=== PATIENT | male | born 1965 | race Two or more races ===

== ENCOUNTER 2017-11-17 06:15 | Day surgery (SDC) | payer BC ==
[2017-11-15 14:52] VITALS: BMI 24.8
[~2017-11-17 06:15] MED LIST: BUPIVACAINE HCL/PF 0.25% (2.5MG/ML) 10 ML VIAL IJ ONE
[2017-11-17] MEDS ORDERED: BUPIVACAINE HCL/EPINEPHRINE/PF 30 ML VIAL IJ ONE (07:06)
[2017-11-17] MEDS ORDERED: BUPIVACAINE HCL/PF 2.5 MG/ML - 30 ML VIAL IJ ONE (07:07)
[2017-11-17] MEDS ORDERED: EPINEPHrine 1:1,000 1 MG/1 ML - 30ML VIAL (INJECTION) ONE (07:12)
[2017-11-17] MEDS ORDERED: SUCCINYLCHOLINE CHLORIDE 200 MG/10 ML VIAL ONE (07:18)
[2017-11-17] MEDS ORDERED: PROPOFOL 20 ML ONE ×2 (07:18)
[2017-11-17] MEDS ORDERED: LIDOCAINE HCL 2% JELLY (5 ML/TUBE) ONE (07:19)
[2017-11-17] MEDS ORDERED: KETOROLAC TROMETHAMINE 30 MG/1 ML VIAL ONE (07:19)
[2017-11-17] MEDS ORDERED: ONDANSETRON 4 MG/2 ML VIAL ONE (07:19)
[2017-11-17] MEDS ORDERED: ceFAZolin SODIUM 1 GM VIAL ONE (07:19)
[2017-11-17] MEDS ORDERED: LIDOCAINE HCL/PF 2% SDV 5ML VIAL ONE (07:19)
[2017-11-17] MEDS ORDERED: DEXAMETHASONE SOD PHOSPHATE 4 MG/1 ML VIAL ONE (07:19)
[2017-11-17] MEDS ORDERED: BUPIVACAINE HCL/PF 0.25% (2.5MG/ML) 10 ML VIAL IJ ONE (08:45)
[2017-11-17] MEDS ORDERED: PROMETHAZINE HCL 25 MG/1 ML VIAL IVPUSH PRN (09:01)
[2017-11-17] MEDS ORDERED: oxyCODONE HCL 5 MG TABLET PO PRN ×2 (09:01)
[2017-11-17] MEDS ORDERED: ONDANSETRON 4 MG/2 ML VIAL IVPUSH PRN (09:01)
[2017-11-17 10:13] VITALS: TEMP 98.2
[2017-11-17 10:59] VITALS: BP 116/80; PULSE 78
--- NOTE | 2017-11-19 21:23 | OP ---
DATE OF OPERATION: 11/17/2017 LOCATION: [facility] SURGEON: Catrachito Marroquin MD DYE STAND LOADER: JODEE Garcia PREOPERATIVE DIAGNOSES: 1. Right knee medial and lateral meniscal tear. 2. Right knee cartilage injury. 3. Right knee synovitis. POSTOPERATIVE DIAGNOSES: 1. Right knee medial and lateral meniscal tear. 2. Right knee cartilage injury. 3. Right knee synovitis. PROCEDURE: 1. Right knee arthroscopy with partial meniscectomy, lateral meniscus. 2. Right knee arthroscopy with chondroplasty and abrasion-plasty. 3. Right knee arthroscopy with synovectomy, including removal of medial plica. FINDINGS: 1. Medial meniscus body and posterior horn tear, posterior one-third. 2. Lateral meniscus body and anterior horn tear, anterior one-third. 3. Synovitis, patellofemoral, medial and lateral notch area. 4. Anterior grade 2 to 3 cartilage injury, medial femoral condyle and tibial plateau. 5. ACL and PCL intact. 6. Diffuse grade 1 to 2 cartilage injury, lateral joint line. 7. Central grade 2 to 4 cartilage injury, patellofemoral trochlea and patellofemoral joint. PROCEDURE: Informed consent was obtained. The patient came to the operating room, where the lower extremity was prepped and draped in a sterile fashion. A tourniquet was placed on the upper thigh, but not inflated. Using standard arthroscopic technique, a lateral incision and portal was made to allow for introduction of the camera into the suprapatellar bursa. This was then taken to the medial joint line, where under direct visualization, a medial incision and portal was made. Excessive synovium noted in the medial, lateral and patellofemoral and notch area was removed by an upbiter, shaver and Bovie cautery. This was found to bring in inflammatory tissue into the joint surface, a source of pain and dysfunction. Probing of the medial and lateral meniscus found tears, as described in the findings. These were removed with the upbiter and shaver and taken back to a stable rim. Grade 2 to 3 degenerative changes were treated with a chondroplasty, removing all flaking surfaces with low-setting Bovie along the periphery to prevent further flaking. Grade 4 changes, as noted, were treated with an abrasoplasty, creating a bleeding surface at the bone/cartilage interface. Aggressive debridement with shaver/german created bleeding surface. Micro fracture also done when indicated in findings All areas of the knee were once again reexamined. The knee was then drained and a single suture was placed in all portals. A sterile dressing was placed and the patient was transferred to the recovery room without complication. CATRACHITO MARROQUIN M.D. [id number]
--- NOTE | 2017-11-21 15:01 | PATH ---
Surgical Pathology Report Patient Name: WILLIE MEJIAS Med. Rec. #: [id number] /Age/Gender: 1965 (Age: 52) / M Account: [id number] Location: [facility] AMBULATORY Taken: 11/17/2017 Received: 11/17/2017 Reported: 11/21/2017 Physicians: Catrachito Oneal M.D. Specimen(s) Received RIGHT KNEE SHAVINGS Clinical History Internal derangement right knee Final Diagnosis KNEE, RIGHT, ARTHROSCOPIC SHAVINGS: FIBROSYNOVIAL AND FIBROCARTILAGINOUS TISSUE. Electronically Signed Lindsey Mooney M.D. Gross Description Received in formalin, labeled "right knee shavings," is a 5.0 x 4.2 x 0.4 cm. aggregate of capone-yellow soft tissue fragments. A retail sales representative portion is submitted in one cassette. /11/20/2017 saudi11/20/2017
== END 2017-11-17 11:00 | disposition home or self-care (01) ==
LOC: FASU 06:15
PROVIDERS: ATTEND Orthopaedic Surgery
PROC: 0SBC4ZZ Excision of Right Knee Joint, Percutaneous Endoscopic Approach (ICD-10-PCS; 2017-11-17)
PROC: 0SBC4ZZ Excision of Right Knee Joint, Percutaneous Endoscopic Approach (ICD-10-PCS; 2017-11-17)
PROC: 0SBC4ZZ Excision of Right Knee Joint, Percutaneous Endoscopic Approach (ICD-10-PCS; principal; 2017-11-17 07:30)
DX: S83.241A Other tear of medial meniscus, current injury, right knee, initial encounter (principal); S83.281A Other tear of lateral meniscus, current injury, right knee, initial encounter; S83.8X1A Sprain of other specified parts of right knee, initial encounter; M65.861 Other synovitis and tenosynovitis, right lower leg; X58.XXXA Exposure to other specified factors, initial encounter; Y93.89 Activity, other specified; Y92.89 Other specified places as the place of occurrence of the external cause
CPT/HCPCS: 88304-TC; 94760

== ENCOUNTER 2021-03-05 06:04 | Day surgery (SDC) | payer BC ==
[2021-03-02 16:40] VITALS: BMI 25.7
[2021-03-05] MEDS ORDERED: BUPIVACAINE HCL/PF 2.5 MG/ML - 30 ML VIAL IJ ONE (07:06)
[2021-03-05] MEDS ORDERED: KETOROLAC TROMETHAMINE 30 MG/1 ML VIAL ONE (07:34)
[2021-03-05] MEDS ORDERED: LIDOCAINE HCL 2% JELLY (5 ML/TUBE) ONE (07:34)
[2021-03-05] MEDS ORDERED: ONDANSETRON 4 MG/2 ML VIAL ONE (07:34)
[2021-03-05] MEDS ORDERED: DEXAMETHASONE SOD PHOSPHATE 4 MG/1 ML VIAL ONE (07:34)
[2021-03-05] MEDS ORDERED: LIDOCAINE HCL/PF 2% SDV 5ML VIAL ONE (07:34)
[2021-03-05] MEDS ORDERED: MIDAZOLAM HCL 2 MG/2 ML SINGLE DOSE VIAL ONE (07:35)
[2021-03-05] MEDS ORDERED: PROPOFOL 20 ML ONE ×3 (07:35)
[2021-03-05] MEDS ORDERED: SUCCINYLCHOLINE CHLORIDE 200 MG/10 ML SYRINGE ONE (07:35)
[2021-03-05] MEDS ORDERED: ceFAZolin SODIUM 1 GM VIAL ONE (07:36)
[2021-03-05] MEDS ORDERED: SEVOFLURANE 250 ML BTL ONE (08:14)
[2021-03-05] MEDS ORDERED: oxyCODONE HCL 5 MG TABLET PO PRN ×2 (08:37)
[2021-03-05] MEDS ORDERED: ONDANSETRON 4 MG/2 ML VIAL IVPUSH PRN (08:37)
[2021-03-05] MEDS ORDERED: PROMETHAZINE HCL 25 MG/1 ML VIAL IVPUSH PRN (08:37)
[2021-03-05 09:30] VITALS: TEMP 97.8
[2021-03-05 10:00] VITALS: BP 127/78; PULSE 84
== END 2021-03-05 10:00 | disposition home or self-care (01) ==
LOC: FASU 06:04
PROVIDERS: ATTEND Orthopaedic Surgery
PROC: 0SBD4ZZ Excision of Left Knee Joint, Percutaneous Endoscopic Approach (ICD-10-PCS; 2021-03-05)
PROC: 0SBD4ZZ Excision of Left Knee Joint, Percutaneous Endoscopic Approach (ICD-10-PCS; 2021-03-05)
PROC: 0SBD4ZZ Excision of Left Knee Joint, Percutaneous Endoscopic Approach (ICD-10-PCS; principal; 2021-03-05 08:03)
DX: S83.242A Other tear of medial meniscus, current injury, left knee, initial encounter (principal); S83.282A Other tear of lateral meniscus, current injury, left knee, initial encounter; S83.8X2A Sprain of other specified parts of left knee, initial encounter; M65.862 Other synovitis and tenosynovitis, left lower leg; X58.XXXA Exposure to other specified factors, initial encounter; Y93.9 Activity, unspecified; Y92.9 Unspecified place or not applicable
CPT/HCPCS: 88304-TC; 94760